=== PATIENT | female | born 1965 | race African-American/Black ===

== ENCOUNTER 2016-07-28 14:28 | Emergency (ER) | payer OTHER, MEDICAID ==
[~2016-07-28] VITALS: Ht 180.3 cm; Wt 59.0 kg
[~2016-07-28 14:28] MED LIST: CHEMOTHERAPY; FOLI-43 PO; FOLIC ACID; FS300 PO; METH2.5T PO; METHOTREXATE; PROMETHAZINE; [UNRECOGNIZED DRUG - REMARK]
[2016-07-28] MEDS ORDERED: ONDANSETRON 4MG ODT PO ONE (16:00)
[2016-07-28] MEDS ORDERED: HYDROCODONE/ACETAMINOPHEN 5/325MG TABLET PO ONE (16:00)
[2016-07-28 16:02] VITALS: BP 139/60
== END 2016-07-28 17:29 | disposition home or self-care (01) ==
LOC: ER 17:28
DX: M79.641 Pain in right hand (principal); M25.531 Pain in right wrist; I10 Essential (primary) hypertension; M19.90 Unspecified osteoarthritis, unspecified site; Z92.21 Personal history of antineoplastic chemotherapy; Z98.890 Other specified postprocedural states; X50.9XXA Other and unspecified overexertion or strenuous movements or postures, initial encounter; Y93.89 Activity, other specified; Y92.89 Other specified places as the place of occurrence of the external cause
CPT/HCPCS: 29125; 73110; 73130; 99284; Q0162

== ENCOUNTER 2016-08-18 13:45 | Emergency (ER) | payer OTHER, MEDICAID ==
[~2016-08-18] VITALS: Ht 157.5 cm; Wt 65.0 kg
[2016-08-18] MEDS ORDERED: IBUPROFEN 600MG TABLET PO ONE (16:00)
[2016-08-18] MEDS ORDERED: HYDROCODONE/ACETAMINOPHEN 5/325MG TABLET PO ONE (17:45)
[2016-08-18 18:50] VITALS: BP 130/58
== END 2016-08-18 19:06 | disposition home or self-care (01) ==
LOC: ER 14:23
DX: R05 Cough (principal); M19.90 Unspecified osteoarthritis, unspecified site; Z85.9 Personal history of malignant neoplasm, unspecified; Z92.3 Personal history of irradiation; Z92.21 Personal history of antineoplastic chemotherapy; Z98.890 Other specified postprocedural states
CPT/HCPCS: 71010; 99283

== ENCOUNTER 2017-07-07 05:17 | Day surgery (SDC) | payer OTHER, MEDICAID ==
[~2017-07-07] VITALS: Ht 149.9 cm; Wt 52.2 kg
[~2017-07-07 05:17] MED LIST changes: +FERR325T23 PO; -FS300 PO
[2017-07-07 07:08] LABS: CLARITY URINE CLEAR (CLEAR); COLOR URINE YELLOW (YELLOW); KETONES URINE NEGATIVE (NEGATIVE); LEUKOCYTE ESTERASE URINE NEGATIVE (NEGATIVE); NITRITE URINE NEGATIVE (NEGATIVE); OCCULT BLOOD URINE 3+ (NEGATIVE); PROTEIN URINE NEGATIVE (NEGATIVE); SPECIFIC GRAVITY URINE 1.022 (1.005-1.030)
[2017-07-07 07:09] LABS: UCG SCREEN NEGATIVE
[2017-07-07 07:10] LABS: BASOPHILS % 1.2 % (0.0-2.0); EOSINOPHILS % 0.9 % (0.0-5.0); HEMATOCRIT. 35.8 % (36.0-48.0); MEAN CORPUSCULAR HEMOGLOBIN 30.6 pg (28.0-32.0); MEAN CORPUSCULAR VOLUME 91.5 fL (81.0-99.0); MEAN PLATELET VOLUME 11.2 fl (7.4-10.4); MONOCYTES % 14.1 % (2.0-8.0); NEUTROPHILS % 50.8 % (40.0-76.0); PLATELET 179 x1000/uL (130-400); RED BLOOD CELL COUNT 3.91 mill/uL (4.2-5.4); RED CELL DISTRIBUTION WIDTH 13.3 % (11.6-14.6)
[2017-07-07] MEDS ORDERED: LIDOCAINE HCL/PF 1% 10 MG/ML 5ML VIAL ONE (07:20)
[2017-07-07] MEDS ORDERED: ROCURONIUM BROMIDE 10MG/ML VIAL 5ML IV ONE (07:20)
[2017-07-07] MEDS ORDERED: MIDAZOLAM HCL 2 MG/2 ML VIAL ONE (07:20)
[2017-07-07] MEDS ORDERED: PROPOFOL 200MG/20ML VIAL IV ONE (07:20)
[2017-07-07] MEDS ORDERED: GLYCOPYRROLATE 0.2 MG/ML 2ML VIAL ONE (07:20)
[2017-07-07] MEDS ORDERED: FENTANYL CITRATE/PF 50MCG/ML 2ML VIAL ONE (07:20)
[2017-07-07] MEDS ORDERED: SUCCINYLCHOLINE CHLORIDE 200MG/10ML VIAL IV ONE (07:20)
[2017-07-07] MEDS ORDERED: DEXAMETHASONE 4MG/ML 1ML VIAL ONE (07:21)
[2017-07-07] MEDS ORDERED: METOCLOPRAMIDE HCL 10MG/2ML VIAL ONE (07:21)
[2017-07-07] MEDS ORDERED: KETOROLAC 30MG/ML VIAL ONE (07:21)
[2017-07-07] MEDS ORDERED: ONDANSETRON HCL 4MG/2ML VIAL ONE (07:21)
[2017-07-07] MEDS ORDERED: CEFAZOLIN SODIUM 1000MG/VIAL ONE (08:02)
[2017-07-07] MEDS ORDERED: SODIUM CHLORIDE 0.9% 1,000 ML IV ONE (10:26)
[2017-07-07] MEDS ORDERED: HYDROMORPHONE HCL/PF 2MG/ML CPJ IV PRN (10:30)
[2017-07-07] MEDS ORDERED: MEPERIDINE HCL/PF 25MG/ML CPJ IV PRN (10:30)
[2017-07-07] MEDS ORDERED: ONDANSETRON HCL 4MG/2ML VIAL IV PRN (10:30)
== END 2017-07-07 10:40 | disposition home or self-care (01) ==
LOC: OR 05:17
PROVIDERS: ATTEND Obstetrics & Gynecology Obstetrics
DX: D25.0 Submucous leiomyoma of uterus (principal); Z98.890 Other specified postprocedural states; Z79.899 Other long term (current) drug therapy; Z85.89 Personal history of malignant neoplasm of other organs and systems; Z92.21 Personal history of antineoplastic chemotherapy; Z92.3 Personal history of irradiation; M19.90 Unspecified osteoarthritis, unspecified site; I10 Essential (primary) hypertension
CPT/HCPCS: 36415; 58145; 58555; 81003; 81025; 85025; 88305; 93005; J0330; J0690; J1100; J1885; J2250; J2405; J2765; J3010; J3490; J7120; J2704

== ENCOUNTER 2017-08-25 05:17 | Inpatient (IN) | payer OTHER, MEDICAID ==
[~2017-08-25] VITALS: Ht 149.9 cm; Wt 52.2 kg
[~2017-08-25 05:17] MED LIST changes: -CHEMOTHERAPY; -FOLIC ACID; -METHOTREXATE; -PROMETHAZINE; +[UNRECOGNIZED DRUG - CODE] IV; -[UNRECOGNIZED DRUG - REMARK]
[2017-08-25] MEDS ORDERED: VASOPRESSIN 20 UNIT/ML 1ML ONE (06:22)
[2017-08-25] MEDS ORDERED: BUPIVACAINE HCL 0.5% (5MG/ML) 50ML ONE (06:22)
[2017-08-25 06:49] LABS: BASOPHILS % 1.3 % (0.0-2.0); EOSINOPHILS % 1.6 % (0.0-5.0); HEMATOCRIT. 37.6 % (36.0-48.0); HEMOGLOBIN. 12.6 g/dL (12.0-16.0); LYMPHOCYTES % 34.6 % (20.0-50.0); MEAN CORPUSCULAR HEMOGLOBIN 30.2 pg (28.0-32.0); MEAN CORPUSCULAR VOLUME 90.1 fL (81.0-99.0); MEAN PLATELET VOLUME 11.8 fl (7.4-10.4); MONOCYTES % 10.8 % (2.0-8.0); NEUTROPHILS % 51.7 % (40.0-76.0); PLATELET 185 x1000/uL (130-400); RED BLOOD CELL COUNT 4.18 mill/uL (4.2-5.4); RED CELL DISTRIBUTION WIDTH 13.5 % (11.6-14.6)
[2017-08-25 06:53] LABS: PROTHROMBIN TIME 10.5 sec (9.4-11.6)
[2017-08-25 07:02] LABS: UCG SCREEN NEGATIVE
[2017-08-25 07:05] LABS: CLARITY URINE CLEAR (CLEAR); COLOR URINE YELLOW (YELLOW); KETONES URINE NEGATIVE (NEGATIVE); LEUKOCYTE ESTERASE URINE NEGATIVE (NEGATIVE); NITRITE URINE NEGATIVE (NEGATIVE); OCCULT BLOOD URINE NEGATIVE (NEGATIVE); PH URINE 5.5 (4.5-8.0); PROTEIN URINE NEGATIVE (NEGATIVE); SPECIFIC GRAVITY URINE 1.022 (1.005-1.030); UROBILINOGEN URINE 0.2 E.U./dL (0.2-1.0)
[2017-08-25] MEDS ORDERED: FENTANYL CITRATE/PF 50MCG/ML 2ML VIAL ONE (07:06)
[2017-08-25] MEDS ORDERED: ROCURONIUM BROMIDE 10MG/ML VIAL 5ML IV ONE (07:06)
[2017-08-25] MEDS ORDERED: EPHEDRINE SULFATE 50MG/ML VIAL ONE (07:07)
[2017-08-25] MEDS ORDERED: CEFAZOLIN SODIUM 1000MG/VIAL ONE (07:07)
[2017-08-25] MEDS ORDERED: LIDOCAINE HCL/PF 1% 10 MG/ML 5ML VIAL ONE (07:07)
[2017-08-25] MEDS ORDERED: PROPOFOL 200MG/20ML VIAL IV ONE ×2 (07:07→08:19)
[2017-08-25] MEDS ORDERED: PHENYLEPHRINE HCL 10 MG/ML 1ML (IV VIAL) IV ONE (07:07)
[2017-08-25] MEDS ORDERED: DEXAMETHASONE 4MG/ML 1ML VIAL ONE (07:07)
[2017-08-25] MEDS ORDERED: NEOSTIGMINE METHYLSULFATE 1MG/ML 10 ML VIAL ONE (07:07)
[2017-08-25] MEDS ORDERED: GLYCOPYRROLATE 0.2 MG/ML 2ML VIAL ONE (07:07)
[2017-08-25] MEDS ORDERED: SUCCINYLCHOLINE CHLORIDE 200MG/10ML VIAL IV ONE (07:07)
[2017-08-25] MEDS ORDERED: MIDAZOLAM HCL 2 MG/2 ML VIAL ONE (07:07)
[2017-08-25] MEDS ORDERED: ONDANSETRON HCL 4MG/2ML VIAL ONE (07:07)
[2017-08-25] MEDS ORDERED: LABETALOL HCL 5MG/ML VIAL 20ML IV ONE (08:22)
[2017-08-25] MEDS ORDERED: ONDANSETRON HCL 4MG/2ML VIAL IV PRN (09:00)
[2017-08-25] MEDS ORDERED: HYDROMORPHONE HCL/PF 2MG/ML CPJ IV PRN (09:00)
[2017-08-25] MEDS ORDERED: MEPERIDINE HCL/PF 25MG/ML CPJ IV PRN ×2 (09:00)
[2017-08-25] MEDS ORDERED: MORPHINE SULFATE 4 MG/ML CPJ (NOT FOR IM USE) IV PRN (09:00)
[2017-08-25] MEDS ORDERED: SODIUM CHLORIDE 0.9% 1,000 ML IV NR (09:15)
[2017-08-25 11:30] VITALS: BP 148/88
[2017-08-25 12:15] VITALS: BP 148/88
[2017-08-25] MEDS ORDERED: LACTATED RINGERS 1,000 ML IV SCH (12:30)
[2017-08-25] MEDS: HYDROCODONE/ACETAMINOPHEN 5/325MG TABLET PO PRN ×2 (12:56→16:42)
[2017-08-25 16:00] VITALS: BP 151/80
[2017-08-25] MEDS ORDERED: METOCLOPRAMIDE HCL 10MG/2ML VIAL IV PRN (18:00)
[2017-08-25 20:00] VITALS: BP 140/77
[2017-08-25] MEDS: IBUPROFEN 600MG TABLET PO PRN (22:01)
[2017-08-26] VITALS: BP 139/88
[2017-08-26] MEDS: HYDROCODONE/ACETAMINOPHEN 5/325MG TABLET PO PRN (00:27)
[2017-08-26 04:00] VITALS: BP 132/88
[2017-08-26 08:00] VITALS: BP 117/82
[2017-08-26 08:02] LABS: BASOPHILS % 0.3 % (0.0-2.0); EOSINOPHILS % 0.2 % (0.0-5.0); HEMOGLOBIN. 11.1 g/dL (12.0-16.0); LYMPHOCYTES % 19.7 % (20.0-50.0); MEAN CORPUSCULAR HEMOGLOBIN 30.3 pg (28.0-32.0); MEAN CORPUSCULAR VOLUME 89.8 fL (81.0-99.0); MEAN PLATELET VOLUME 12.2 fl (7.4-10.4); MONOCYTES % 14.4 % (2.0-8.0); NEUTROPHILS % 65.4 % (40.0-76.0); PLATELET 162 x1000/uL (130-400); RED BLOOD CELL COUNT 3.67 mill/uL (4.2-5.4); RED CELL DISTRIBUTION WIDTH 13.5 % (11.6-14.6)
[2017-08-26 12:00] VITALS: BP 120/70
[2017-08-26] MEDS: IBUPROFEN 600MG TABLET PO PRN (15:04)
[2017-08-26 16:00] VITALS: BP 130/80
[2017-08-26 19:34] VITALS: BP 133/71
[2017-08-27] VITALS: BP 119/77
[2017-08-27] MEDS: HYDROCODONE/ACETAMINOPHEN 5/325MG TABLET PO PRN (03:53)
[2017-08-27 04:26] VITALS: BP 125/73
[2017-08-27 08:00] VITALS: BP 118/86
[2017-08-27 12:00] VITALS: BP 121/72
[2017-08-27 14:46] VITALS: BP 135/85
== END 2017-08-27 15:04 | disposition home or self-care (01) | DRG 743 ==
LOC: ORIP 05:17 → 6EST 12:32
PROVIDERS: ADMIT Obstetrics & Gynecology Obstetrics; ATTEND Obstetrics & Gynecology Obstetrics
PROC: 0UT20ZZ Resection of Bilateral Ovaries, Open Approach (ICD-10-PCS; 2017-08-25)
PROC: 0UT70ZZ Resection of Bilateral Fallopian Tubes, Open Approach (ICD-10-PCS; 2017-08-25)
PROC: 0DNW0ZZ Release Peritoneum, Open Approach (ICD-10-PCS; 2017-08-25)
PROC: 0UT90ZZ Resection of Uterus, Open Approach (ICD-10-PCS; principal; 2017-08-25 07:00)
DX: D25.9 Leiomyoma of uterus, unspecified (principal); K66.0 Peritoneal adhesions (postprocedural) (postinfection); N70.13 Chronic salpingitis and oophoritis; N85.00 Endometrial hyperplasia, unspecified; N95.0 Postmenopausal bleeding; N83.311 Acquired atrophy of right ovary; N83.312 Acquired atrophy of left ovary; Z83.3 Family history of diabetes mellitus; Z90.710 Acquired absence of both cervix and uterus; Z82.49 Family history of ischemic heart disease and other diseases of the circulatory system; Z82.61 Family history of arthritis; Z80.8 Family history of malignant neoplasm of other organs or systems
CPT/HCPCS: 36415; 81003; 81025; 85025; 85610; 86850; 86900; 88307; 93005; J0330; J0690; J1100; J2175; J2250; J2370; J2405; J2704; J2710; J2765; J3010; J3490

== ENCOUNTER 2019-05-29 13:06 | Emergency (ER) | payer OTHER, MEDICAID ==
[~2019-05-29] VITALS: Ht 149.9 cm; Wt 59.0 kg
[2019-05-29 15:56] VITALS: BP 143/87
== END 2019-05-29 15:59 | disposition home or self-care (01) ==
LOC: ER 13:46
DX: J30.89 Other allergic rhinitis (principal); Z85.9 Personal history of malignant neoplasm, unspecified; Z87.39 Personal history of other diseases of the musculoskeletal system and connective tissue
CPT/HCPCS: 99282

== ENCOUNTER 2020-10-05 10:35 | Emergency (ER) | payer OTHER, MEDICAID ==
[~2020-10-05] VITALS: Ht 149.9 cm; Wt 56.0 kg
[2020-10-05] MEDS ORDERED: IBUPROFEN 600MG TABLET PO STA (13:38)
[2020-10-05 14:02] LABS: CLARITY URINE CLOUDY (CLEAR); COLOR URINE DARK YELLOW (YELLOW); KETONES URINE 3+ (NEGATIVE); LEUKOCYTE ESTERASE URINE 2+ (NEGATIVE); NITRITE URINE POSITIVE (NEGATIVE); OCCULT BLOOD URINE 1+ (NEGATIVE); PH URINE 5.5 (4.5-8.0); PROTEIN URINE 1+ (NEGATIVE); SPECIFIC GRAVITY URINE 1.021 (1.005-1.030); UROBILINOGEN URINE 0.2 E.U./dL (0.2-1.0)
[2020-10-05 14:23] VITALS: BP 130/90
[2020-10-05] MEDS ORDERED: IBUP-2029 MT (14:50)
[2020-10-05] MEDS ORDERED: AMOX-424 MT (14:50)
== END 2020-10-05 15:00 | disposition home or self-care (01) ==
LOC: ER 10:35
DX: N10 Acute pyelonephritis (principal); M19.90 Unspecified osteoarthritis, unspecified site; Z98.890 Other specified postprocedural states; Z90.710 Acquired absence of both cervix and uterus
CPT/HCPCS: 81003; 87077; 87186; 99283

== ENCOUNTER 2020-12-28 17:23 | Emergency (ER) | payer OTHER, MEDICAID ==
[~2020-12-28] VITALS: Ht 149.9 cm; Wt 52.0 kg
[~2020-12-28 17:23] MED LIST changes: +AMOX-424 MT; +IBUP-2029 MT
[2020-12-28] MEDS ORDERED: LEVOFLOXACIN 500MG PREMIX 100 ML IV ONE (23:30)
[2020-12-28] MEDS ORDERED: SODIUM CHLORIDE 0.9% 1000ML BAG (SEPSIS BOLUS) IV ONE (23:30)
[2020-12-28] MEDS ORDERED: MORPHINE SULFATE 4 MG/ML CPJ (NOT FOR IM USE) IV STA (23:36)
[2020-12-28] MEDS ORDERED: ONDANSETRON HCL 4MG/2ML INJ IV STA (23:36)
[2020-12-28 23:40] LABS: HEMATOCRIT. 41.1 % (36.0-48.0); HEMOGLOBIN. 13.7 g/dL (12.0-16.0); MEAN CORPUSCULAR HEMOGLOBIN 30.4 pg (28.0-32.0); MEAN CORPUSCULAR VOLUME 91.3 fL (81.0-99.0); MEAN PLATELET VOLUME 11.2 fl (7.4-10.4); PLATELET 182 x1000/uL (130-400); RED CELL DISTRIBUTION WIDTH 13.4 % (11.6-14.6)
[2020-12-28] MEDS ORDERED: PIPERACILLIN/TAZOBACTAM 3.375GM/50ML PREMIX IV SCH (23:45)
[2020-12-28 23:47] LABS: CHLORIDE 104 mEq/L (98-107)
[2020-12-28 23:49] LABS: INR 1.1; PROTHROMBIN TIME 11.4 sec (9.6-11.0)
[2020-12-29] MEDS ORDERED: MORPHINE SULFATE 2 MG/ML CPJ (NOT FOR IM USE) IV NR (00:04)
[2020-12-29 00:31] LABS: CLARITY URINE CLEAR (CLEAR); COLOR URINE YELLOW (YELLOW); KETONES URINE 4+ (NEGATIVE); LEUKOCYTE ESTERASE URINE 2+ (NEGATIVE); NITRITE URINE NEGATIVE (NEGATIVE); OCCULT BLOOD URINE 1+ (NEGATIVE); PROTEIN URINE 2+ (NEGATIVE); SPECIFIC GRAVITY URINE 1.022 (1.005-1.030)
[2020-12-29 02:19] LABS: PLATELET ESTIMATE NORMAL
[2020-12-29] MEDS ORDERED: NITR-87 MT (02:24)
[2020-12-29 03:00] VITALS: BP 135/65
== END 2020-12-29 04:12 | disposition home or self-care (01) ==
LOC: ER 17:23
DX: R10.9 Unspecified abdominal pain (principal); R50.9 Fever, unspecified; R51.9 Headache, unspecified; Z98.890 Other specified postprocedural states; Z90.710 Acquired absence of both cervix and uterus; Z79.899 Other long term (current) drug therapy
CPT/HCPCS: 36415; 74176; 80053; 81003; 83605; 83690; 84484; 85025; 85610; 87040; 87077; 87086; 87186; 93005; 96365; 96375; 99291; J2270; J2405; J2543; J7030

== ENCOUNTER 2021-11-01 21:29 | Emergency (ER) | payer OTHER, MEDICAID ==
[~2021-11-01] VITALS: Ht 149.9 cm; Wt 57.0 kg
[~2021-11-01 21:29] MED LIST changes: +NITR-87 MT
[2021-11-02] MEDS ORDERED: CARBAMIDE PEROXIDE 6.5% OTIC SOLN 15ML EACH EAR ONE (01:45)
[2021-11-02 05:10] VITALS: BP 131/78
== END 2021-11-02 05:10 | disposition home or self-care (01) ==
LOC: ER 21:29
DX: H61.23 Impacted cerumen, bilateral (principal); M19.90 Unspecified osteoarthritis, unspecified site; Z90.710 Acquired absence of both cervix and uterus
CPT/HCPCS: 69210; 99282

== ENCOUNTER 2022-04-05 15:39 | Emergency (ER) | payer OTHER, MEDICAID ==
[~2022-04-05] VITALS: Ht 149.9 cm; Wt 57.0 kg
[2022-04-05] MEDS ORDERED: AMOX1TAB16 MT (17:26)
[2022-04-05] MEDS ORDERED: HYDR-4001 MT ×2 (17:26)
[2022-04-05] MEDS ORDERED: CETI10CA2 MT (17:26)
[2022-04-05 17:47] VITALS: BP 128/97
[2022-04-06] MEDS ORDERED: HYDR-4001 PO (12:17)
== END 2022-04-05 17:48 | disposition home or self-care (01) ==
LOC: ER 15:39
DX: J32.9 Chronic sinusitis, unspecified (principal); H92.01 Otalgia, right ear; Z98.890 Other specified postprocedural states; Z87.01 Personal history of pneumonia (recurrent); Z79.899 Other long term (current) drug therapy; Z90.710 Acquired absence of both cervix and uterus
CPT/HCPCS: 99283

== ENCOUNTER 2022-07-13 18:54 | Emergency (ER) | payer OTHER, MEDICAID ==
[~2022-07-13] VITALS: Ht 149.9 cm; Wt 56.8 kg
[~2022-07-13 18:54] MED LIST changes: +AMOX1TAB16 MT; +CETI10CA2 MT; +HYDR-4001 PO
[2022-07-13 19:01] VITALS: BP 132/86
[2022-07-13] MEDS ORDERED: LIDO20SO25 SSP (21:55)
[2022-07-13] MEDS ORDERED: IBUP-2028 MT (21:55)
[2022-07-13] MEDS ORDERED: KETOROLAC 60MG/2ML VIAL IM ONE (22:00)
== END 2022-07-13 22:29 | disposition home or self-care (01) ==
LOC: ER 18:54
DX: K08.89 Other specified disorders of teeth and supporting structures (principal); Z87.19 Personal history of other diseases of the digestive system; Z90.710 Acquired absence of both cervix and uterus; Z98.890 Other specified postprocedural states
CPT/HCPCS: 96372; 99283; J1885

== ENCOUNTER 2023-02-05 13:45 | Emergency (ER) | payer OTHER, MEDICAID ==
[~2023-02-05] VITALS: Ht 160 cm; Wt 66.0 kg
[~2023-02-05 13:45] MED LIST changes: +IBUP-2028 MT; +LIDVISBULK SSP
[2023-02-05 13:52] VITALS: BP 153/80; PULSE 55; RESP 18; TEMP 98.5; O2SAT 97
[2023-02-05 14:21] LABS: HEMOGLOBIN. 13.3 g/dL (12.0-16.0); MEAN CORPUSCULAR VOLUME 90.5 fL (81.0-99.0); MEAN PLATELET VOLUME 10.9 fl (7.4-10.4)
[2023-02-05 14:46] LABS: HCG SCREEN NEGATIVE
[2023-02-05 14:52] LABS: CHLORIDE 105 mEq/L (98-107); INDEX HEMOLYSI 1 (1-3); INDEX ICTERIC 1 (1-4); INDEX LIPEMIC 1 (1-3); POTASSIUM 4.1 mEq/L (3.5-5.1); SODIUM 140 mEq/L (136-145)
[2023-02-05 14:53] LABS: EOSINOPHILS % 0.5 % (0.0-5.0); HEMATOCRIT. 40.7 % (36.0-48.0); LYMPHOCYTES % 37.4 % (20.0-50.0); MEAN CORPUSCULAR HEMOGLOBIN 29.6 pg (28.0-32.0); MEAN CORPUSCULAR HGB CONC 32.7 g/dL (31.0-37.0); MONOCYTES % 10.4 % (2.0-8.0); NEUTROPHILS % 50.7 % (40.0-76.0); PLATELET 201 x1000/uL (130-400); RED BLOOD CELL COUNT 4.49 mill/uL (4.2-5.4); RED CELL DISTRIBUTION WIDTH 13.1 % (11.6-14.6); WHITE BLOOD COUNT 5.9 x1000/uL (4.5-11.0)
[2023-02-05 14:55] LABS: DIFFERENTIAL COMMENT 1
[2023-02-05 15:06] LABS: ALANINE AMINOTRANSFERASE 24 IU/L (13-61); ALBUMIN 4.7 g/dL (3.4-5.0); ASPARTATE AMINOTRANSFERASE 20 IU/L (15-37); BILIRUBIN TOTAL 0.5 mg/dL (0.1-1.0); CALCIUM 9.3 mg/dL (8.5-10.1); CARBON DIOXIDE 31 mEq/L (21-32); CREATINE KINASE 119 IU/L (26-192); CREATININE 0.7 mg/dL (0.6-1.3); GLUCOSE 86 mg/dL (70-105); UREA NITROGEN BLOOD 20 mg/dL (7-21)
[2023-02-05] MEDS ORDERED: IBUP-2029 MT (15:29)
[2023-02-05] MEDS ORDERED: METH-653 MT (15:29)
[2023-02-05] MEDS ORDERED: GUAI-450 MT (15:29)
== END 2023-02-05 15:58 | disposition home or self-care (01) ==
LOC: ER 13:45
DX: M79.674 Pain in right toe(s) (principal); Z79.899 Other long term (current) drug therapy
CPT/HCPCS: 36415; 71045; 80053; 82550; 84703; 85025; 99284

== ENCOUNTER 2023-02-22 16:54 | Emergency (ER) | payer OTHER, MEDICAID ==
[~2023-02-22] VITALS: Ht 149.9 cm; Wt 52.0 kg
[~2023-02-22 16:54] MED LIST changes: +GUAI-450 MT; +METH-653 MT
[2023-02-22 16:57] VITALS: BP 135/75; PULSE 59; RESP 16; TEMP 98.9; O2SAT 100
[2023-02-22] MEDS ORDERED: FLUT9.9S BOTHNSTRLS (17:46)
== END 2023-02-22 18:35 | disposition home or self-care (01) ==
LOC: ER 17:07
DX: H66.92 Otitis media, unspecified, left ear (principal); M19.90 Unspecified osteoarthritis, unspecified site; Z98.890 Other specified postprocedural states; Z90.710 Acquired absence of both cervix and uterus
CPT/HCPCS: 99283

== ENCOUNTER 2024-01-26 12:37 | Emergency (ER) | payer OTHER, MEDICAID ==
[~2024-01-26] VITALS: Ht 157.5 cm; Wt 52.0 kg
[~2024-01-26 12:37] MED LIST changes: +FLUT9.9S BOTHNSTRLS
[2024-01-26 13:21] LABS: DIFFERENTIAL COMMENT 0; EOSINOPHILS % 0.3 % (0.0-5.0); HEMATOCRIT. 41.4 % (36.0-48.0); HEMOGLOBIN. 13.9 g/dL (12.0-16.0); LYMPHOCYTES % 21.7 % (20.0-50.0); MEAN CORPUSCULAR HEMOGLOBIN 30.9 pg (28.0-32.0); MEAN CORPUSCULAR HGB CONC 33.5 g/dL (31.0-37.0); MEAN CORPUSCULAR VOLUME 92.2 fL (81.0-99.0); MEAN PLATELET VOLUME 11.2 fl (7.4-10.4); MONOCYTES % 7.2 % (2.0-8.0); NEUTROPHILS % 69.8 % (40.0-76.0); PLATELET 204 x1000/uL (130-400); RED BLOOD CELL COUNT 4.49 mill/uL (4.2-5.4); RED CELL DISTRIBUTION WIDTH 13.4 % (11.6-14.6); WHITE BLOOD COUNT 5.9 x1000/uL (4.5-11.0)
[2024-01-26 13:33] LABS: CHLORIDE 107 mEq/L (98-107); POTASSIUM 3.8 mEq/L (3.5-5.1); SODIUM 141 mEq/L (136-145)
[2024-01-26 13:34] LABS: CARBON DIOXIDE 25 mEq/L (21-32)
[2024-01-26 13:35] LABS: CALCIUM 10.3 mg/dL (8.7-10.4)
[2024-01-26 13:40] LABS: CREATININE 0.8 mg/dL (0.6-1.0); GLUCOSE 62 mg/dL (70-105); UREA NITROGEN BLOOD 21 mg/dL (9-23)
[2024-01-26 14:25] LABS: CLARITY URINE CLOUDY (CLEAR); COLOR URINE YELLOW (YELLOW); GLUCOSE URINE NEGATIVE (NEGATIVE); KETONES URINE 3+ (NEGATIVE); LEUKOCYTE ESTERASE URINE 2+ (NEGATIVE); NITRITE URINE NEGATIVE (NEGATIVE); OCCULT BLOOD URINE NEGATIVE (NEGATIVE); PH URINE 5.5 (4.5-8.0); PROTEIN URINE 1+ (NEGATIVE); SPECIFIC GRAVITY URINE 1.028 (1.005-1.030)
[2024-01-26 14:49] LABS: SQUAMOUS EPITHELIAL CELL URINE 2+ /lpf (RARE/1+)
[2024-01-26 14:50] LABS: WBC URINE TNTC /hpf (0-2)
[2024-01-26 14:51] LABS: BACTERIA URINE 2+
[2024-01-26] MEDS ORDERED: CEPH500T MT (15:32)
[2024-01-26] MEDS ORDERED: CEFTRIAXONE SODIUM 500MG VIAL IM ONE (15:45)
[2024-01-26] MEDS ORDERED: AZITHROMYCIN 500 MG TABLET PO ONE (15:45)
[2024-01-26 16:06] VITALS: BP 112/74; PULSE 74; RESP 16; TEMP 36.94740; O2SAT 99
== END 2024-01-26 16:07 | disposition home or self-care (01) ==
LOC: ER 12:37
DX: N39.0 Urinary tract infection, site not specified (principal); Z79.899 Other long term (current) drug therapy; Z90.710 Acquired absence of both cervix and uterus; Z98.890 Other specified postprocedural states
CPT/HCPCS: 36415; 80048; 81003; 85025; 99283

== ENCOUNTER 2024-05-01 11:26 | Emergency (ER) | payer MEDICAID, OTHER ==
[~2024-05-01] VITALS: Ht 149.9 cm; Wt 52.0 kg
[~2024-05-01 11:26] MED LIST changes: +CEPH500T MT
[2024-05-01 11:42] VITALS: BP 172/66; PULSE 57; RESP 16; TEMP 98.7; O2SAT 100
[2024-05-01 12:53] LABS: BASOPHILS % 1.2 % (0.0-2.0); DIFFERENTIAL COMMENT 0; EOSINOPHILS % 0.6 % (0.0-5.0); HEMATOCRIT. 39.6 % (36.0-48.0); HEMOGLOBIN. 12.8 g/dL (12.0-16.0); LYMPHOCYTES % 25.1 % (20.0-50.0); MEAN CORPUSCULAR HEMOGLOBIN 30.1 pg (28.0-32.0); MEAN CORPUSCULAR HGB CONC 32.3 g/dL (31.0-37.0); MEAN CORPUSCULAR VOLUME 93.2 fL (81.0-99.0); MEAN PLATELET VOLUME 10.9 fl (7.4-10.4); MONOCYTES % 9.8 % (2.0-8.0); NEUTROPHILS % 63.3 % (40.0-76.0); PLATELET 218 x1000/uL (130-400); RED BLOOD CELL COUNT 4.25 mill/uL (4.2-5.4); RED CELL DISTRIBUTION WIDTH 13.4 % (11.6-14.6); WHITE BLOOD COUNT 5.4 x1000/uL (4.5-11.0)
[2024-05-01 12:58] LABS: CARBON DIOXIDE 23 mEq/L (21-32); CHLORIDE 111 mEq/L (98-107); POTASSIUM 4.7 mEq/L (3.5-5.1); SODIUM 144 mEq/L (136-145)
[2024-05-01 12:59] LABS: CALCIUM 9.8 mg/dL (8.7-10.4)
[2024-05-01 13:04] LABS: CREATININE 0.9 mg/dL (0.6-1.0); GLUCOSE 91 mg/dL (70-105); UREA NITROGEN BLOOD 22 mg/dL (9-23)
== END 2024-05-01 15:35 | disposition home or self-care (01) ==
LOC: ER 11:34
DX: J40 Bronchitis, not specified as acute or chronic (principal); Z90.710 Acquired absence of both cervix and uterus; Z98.890 Other specified postprocedural states
CPT/HCPCS: 36415; 71045; 80048; 85025; 99284

== ENCOUNTER 2024-06-08 20:14 | Emergency (ER) | payer BC, OTHER ==
[~2024-06-08] VITALS: Ht 149.9 cm; Wt 52.0 kg
[2024-06-08 20:42] VITALS: O2SAT 100
[2024-06-08 21:25] LABS: CLARITY URINE CLOUDY (CLEAR); COLOR URINE YELLOW (YELLOW); GLUCOSE URINE NEGATIVE (NEGATIVE); KETONES URINE NEGATIVE (NEGATIVE); LEUKOCYTE ESTERASE URINE 1+ (NEGATIVE); NITRITE URINE NEGATIVE (NEGATIVE); OCCULT BLOOD URINE NEGATIVE (NEGATIVE); PROTEIN URINE TRACE (NEGATIVE); SPECIFIC GRAVITY URINE 1.026 (1.005-1.030); UROBILINOGEN URINE 0.2 E.U./dL (0.2-1.0)
[2024-06-08 21:47] LABS: BACTERIA URINE 1+; RBC URINE NONE SEEN /hpf (0-2); SQUAMOUS EPITHELIAL CELL URINE FEW /lpf (RARE/1+); WBC URINE 15-25 /hpf (0-2)
[2024-06-08] MEDS: ACETAMINOPHEN 325MG TABLET PO ONE (22:27)
[2024-06-08] MEDS ORDERED: CEPH500T MT (23:13)
[2024-06-08 23:24] VITALS: BP 132/76; PULSE 74; RESP 18; TEMP 36.7; O2SAT 100
== END 2024-06-08 23:25 | disposition home or self-care (01) ==
LOC: ER 20:14
DX: N39.0 Urinary tract infection, site not specified (principal); M19.90 Unspecified osteoarthritis, unspecified site; Z90.710 Acquired absence of both cervix and uterus
CPT/HCPCS: 81003; 81025; 87077; 87186; 99283

== ENCOUNTER 2024-09-21 15:35 | Emergency (ER) | payer BC, MEDICAID ==
[~2024-09-21] VITALS: Ht 149.9 cm; Wt 69.0 kg
[2024-09-21 15:40] VITALS: O2SAT 98
[2024-09-21 18:37] LABS: DIFFERENTIAL COMMENT 0; EOSINOPHILS % 0.6 % (0.0-5.0); HEMATOCRIT. 40.5 % (36.0-48.0); HEMOGLOBIN. 13.3 g/dL (12.0-16.0); LYMPHOCYTES % 32.3 % (20.0-50.0); MEAN CORPUSCULAR HEMOGLOBIN 30.1 pg (28.0-32.0); MEAN CORPUSCULAR HGB CONC 32.7 g/dL (31.0-37.0); MEAN CORPUSCULAR VOLUME 92.1 fL (81.0-99.0); MEAN PLATELET VOLUME 11.4 fl (7.4-10.4); MONOCYTES % 10.3 % (2.0-8.0); NEUTROPHILS % 55.8 % (40.0-76.0); PLATELET 211 x1000/uL (130-400); RED CELL DISTRIBUTION WIDTH 13.3 % (11.6-14.6)
[2024-09-21 18:38] LABS: CHLORIDE 105 mEq/L (98-107); POTASSIUM 3.9 mEq/L (3.5-5.1); SODIUM 140 mEq/L (136-145)
[2024-09-21 18:39] LABS: CARBON DIOXIDE 26 mEq/L (21-32)
[2024-09-21 18:40] LABS: CALCIUM 9.6 mg/dL (8.7-10.4)
[2024-09-21 18:45] LABS: GLUCOSE 79 mg/dL (70-105); UREA NITROGEN BLOOD 13 mg/dL (9-23)
[2024-09-21] MEDS ORDERED: LORA-1087 MT (19:36)
[2024-09-21] MEDS ORDERED: AMOX-494 MT (19:36)
[2024-09-21 19:43] VITALS: BP 140/72; PULSE 64; RESP 18; TEMP 36.8; O2SAT 100
[2024-09-21] MEDS ORDERED: CYAN1SPR2 NS (19:47)
== END 2024-09-21 19:50 | disposition home or self-care (01) ==
LOC: ER 15:35
DX: H65.92 Unspecified nonsuppurative otitis media, left ear (principal); R05.3 Chronic cough; G62.9 Polyneuropathy, unspecified; Z90.710 Acquired absence of both cervix and uterus; Z98.890 Other specified postprocedural states
CPT/HCPCS: 36415; 71045; 80048; 85025; 99284

== ENCOUNTER 2024-10-28 22:44 | Emergency (ER) | payer BC, MEDICAID ==
[~2024-10-28] VITALS: Ht 149.9 cm; Wt 52.7 kg
[~2024-10-28 22:44] MED LIST changes: +AMOX-494 MT; +CYAN1SPR2 NS; +LORA-1087 MT
[2024-10-28 23:16] VITALS: O2SAT 99
[2024-10-29 00:20] LABS: BASOPHILS % 1.2 % (0.0-2.0); EOSINOPHILS % 1.3 % (0.0-5.0); HEMATOCRIT. 39.1 % (36.0-48.0); HEMOGLOBIN. 12.8 g/dL (12.0-16.0); LYMPHOCYTES % 41.7 % (20.0-50.0); MEAN PLATELET VOLUME 11.5 fl (7.4-10.4); MONOCYTES % 9.7 % (2.0-8.0); NEUTROPHILS % 46.1 % (40.0-76.0); PLATELET 204 x1000/uL (130-400); RED BLOOD CELL COUNT 4.24 mill/uL (4.2-5.4); RED CELL DISTRIBUTION WIDTH 13.1 % (11.6-14.6)
[2024-10-29 00:35] LABS: CREATININE 0.9 mg/dL (0.6-1.0); TROPONIN I HIGH SENSITIVITY < 4 ng/L (3.0-34); UREA NITROGEN BLOOD 19 mg/dL (9-23)
[2024-10-29 00:36] LABS: ASPARTATE AMINOTRANSFERASE 19 IU/L (<34)
[2024-10-29 00:37] LABS: BILIRUBIN TOTAL 0.8 mg/dL (0.1-1.0); PROTEIN TOTAL 7.3 g/dL (6.0-8.3)
[2024-10-29] MEDS ORDERED: IBUP-2028 MT (01:16)
[2024-10-29 01:30] VITALS: BP 136/99; PULSE 50; RESP 14; TEMP 36.9; O2SAT 100
== END 2024-10-29 01:33 | disposition home or self-care (01) ==
LOC: ER 22:44
DX: H72.92 Unspecified perforation of tympanic membrane, left ear (principal); R07.81 Pleurodynia; M19.90 Unspecified osteoarthritis, unspecified site; Z90.710 Acquired absence of both cervix and uterus; Z79.899 Other long term (current) drug therapy
CPT/HCPCS: 36415; 71100; 80053; 81025; 84484; 85025; 93005; 99285